=== PATIENT | female | born 2000 | race Two or more races ===

== ENCOUNTER 2021-06-08 20:16 | Emergency (ER) | payer SELFPAY ==
[~2021-06-08] VITALS: Ht 165.1 cm; Wt 65.0 kg
[2021-06-09] MEDS ORDERED: LORAZEPAM 2MG/ML CPJ IM STA (01:21)
[2021-06-09] MEDS ORDERED: HALOPERIDOL LACTATE 5MG/ML VIAL IM STA ×2 (01:21→02:43)
[2021-06-09] MEDS ORDERED: DIPHENHYDRAMINE 50MG/ML VIAL IM STA (01:21)
[2021-06-09 01:40] LABS: BASOPHILS % 0.4 % (0.0-2.0); EOSINOPHILS % 4.3 % (0.0-5.0); HEMATOCRIT. 33.2 % (36.0-48.0); HEMOGLOBIN. 11.3 g/dL (12.0-16.0); LYMPHOCYTES % 24.6 % (20.0-50.0); MEAN CORPUSCULAR HEMOGLOBIN 28.4 pg (28.0-32.0); MEAN CORPUSCULAR VOLUME 83.7 fL (81.0-99.0); MEAN PLATELET VOLUME 8.2 fl (7.4-10.4); MONOCYTES % 6.9 % (2.0-8.0); NEUTROPHILS % 63.8 % (40.0-76.0); PLATELET 275 x1000/uL (130-400); RED BLOOD CELL COUNT 3.97 mill/uL (4.2-5.4); RED CELL DISTRIBUTION WIDTH 12.9 % (11.6-14.6)
[2021-06-09 01:46] LABS: CHLORIDE 106 mEq/L (98-107)
[2021-06-09 01:50] LABS: ETHANOL BLOOD < 10 mg/dL
[2021-06-09 02:08] LABS: HCG SCREEN NEGATIVE
[2021-06-09] MEDS ORDERED: DIPHENHYDRAMINE 50MG/ML VIAL IV STA (02:43)
[2021-06-09] MEDS ORDERED: LORAZEPAM 2MG/ML CPJ IV STA (02:43)
[2021-06-09 12:00] VITALS: BP 120/56
[2021-06-09 15:09] LABS: *BARBITURATES SCREEN URINE NEGATIVE (NEGATIVE); *BENZODIAZEPINES SCREEN URINE NEGATIVE (NEGATIVE); *COCAINE SCREEN URINE NEGATIVE (NEGATIVE); METHADONE URINE SCREEN NEGATIVE (NEGATIVE)
[2021-06-09 15:10] LABS: OPIATES URINE SCREEN NEGATIVE (NEGATIVE); PHENCYCLIDINE URINE SCREEN NEGATIVE (NEGATIVE)
[2021-06-09 15:11] LABS: *AMPHETAMINES SCREEN URINE PRESUMTIVE POSITIVE (NEGATIVE); CANNABINOID URINE SCREEN PRESUMTIVE POSITIVE (NEGATIVE)
== END 2021-06-09 15:40 | disposition home or self-care (01) ==
LOC: ER 20:16
DX: R41.82 Altered mental status, unspecified (principal); R00.0 Tachycardia, unspecified
CPT/HCPCS: 36415; 70450; 80053; 80305; 80320; 84703; 85025; 93005; 96372; 96374; 96375; 99285; J1200; J1630; J2060; G0480